=== PATIENT | male | born 1950 | race Hispanic/Latino ===

== ENCOUNTER → 2022-03-04 | Day surgery (SDC) | payer MEDICARE, BC ==
[2022-03-01 16:43] LABS: BASOPHILS # (AUTO) 0.1 (0.0-0.1); BASOPHILS % 0.5 % (0.0-1.0); EOSINOPHILS # (AUTO) 0.3 (0.0-0.4); EOSINOPHILS % 2.8 % (0.0-6.0); HEMATOCRIT 45.3 % (38.2-49.6); HEMOGLOBIN 14.4 g/dL (14.0-18.0); LYMPHOCYTES # (AUTO) 1.9 (1.0-3.2); LYMPHOCYTES % 17.3 % (18.0-39.1); MEAN CORPUSCULAR HEMOGLOBIN 28.5 pg (28-32); MEAN CORPUSCULAR HGB CONC 31.8 g/dL (31-35); MEAN CORPUSCULAR VOLUME 89.7 fL (81-99); MONOCYTES # (AUTO) 0.8 (0.2-0.8); NEUTROPHILS # (AUTO) 8.1 (2.1-6.9); PLATELET COUNT 254 x10e3/uL (140-360); RED BLOOD COUNT 5.05 x10e6/uL (4.3-5.7); RED CELL DISTRIBUTION WIDTH 13.4 % (11.7-14.4)
[~2022-03-04] MED LIST: ASPIRIN81 MG PO; CEFTRIAXONE 1 GM VIAL ONE; DHEA50 MG PO; EPHEDRINE SULFATE INJ 50 MG/ML VIAL ONE; FENTANYL CITRATE/PF 100MCG/2 ML INJ ONE; FLOMAX0.4 MG PO; IOPAMIDOL 610MG/1ML 300 MG/ML VIAL IV ONE; KEPPRA500 MG PO; KRILL OIL 1,501 EACH PO; LIPITOR10 MG PO; LISINOPRIL10 MG PO; MIRAPEX0.25 MG PO; OMEPRAZOLE40 MG PO; ONDANSETRON HCL INJ 2MG/ML 2ML 2 MG/ML VIAL ONE; POVIDONE IODINE 0.05% 0.05 % ML PO ONE; PROPOFOL IV EMULSION 10 MG/ML 20 ML VIAL ONE; SEVOFLURANE INHAL SOLN 250 ML PEN BTL ONE; SOTALOL80 MG PO; VESICARE5 MG PO; XARELTO20 MG PO
[2022-03-04 08:35] VITALS: BP 125/66
== END | disposition home or self-care (01) ==
LOC: OR 05:34
PROVIDERS: ATTEND Urology
DX: R31.9 Hematuria, unspecified (principal); N40.0 Benign prostatic hyperplasia without lower urinary tract symptoms; N32.89 Other specified disorders of bladder; Z96.0 Presence of urogenital implants; I10 Essential (primary) hypertension; I48.91 Unspecified atrial fibrillation; E78.5 Hyperlipidemia, unspecified; Z88.8 Allergy status to other drugs, medicaments and biological substances; Z01.810 Encounter for preprocedural cardiovascular examination; Z01.812 Encounter for preprocedural laboratory examination; Z01.818 Encounter for other preprocedural examination; Z20.822 Contact with and (suspected) exposure to COVID-19; Z79.02 Long term (current) use of antithrombotics/antiplatelets; Z79.82 Long term (current) use of aspirin; Z79.899 Other long term (current) drug therapy; Z95.0 Presence of cardiac pacemaker; Z86.73 Personal history of transient ischemic attack (TIA), and cerebral infarction without residual deficits
CPT/HCPCS: 0223U; 36415; 52005; 71046; 74420; 85025; 88112; 88305; 93005; C1758; J0696; J2405; J2704; J3010; Q9967; 88300